=== PATIENT | female | born 1995 | race African-American/Black ===

== ENCOUNTER 2016-10-08 12:16 | Emergency (ER) | payer OTHER ==
[2016-10-08 12:28] VITALS: TEMP 98; BMI 25.8
[2016-10-08] MEDS ORDERED: ACETAMINOPHEN 500 MG TABLET (FP) PO ONE (13:18)
[2016-10-08] MEDS ORDERED: ACETAMINOPHEN 325 MG TABLET (FP) ONE (13:20)
[2016-10-08 13:32] LABS: URINE APPEARANCE CLEAR; URINE BILIRUBIN NEGATIVE (NEGATIVE); URINE BLOOD NEGATIVE (NEGATIVE); URINE COLOR LTYELLOW; URINE GLUCOSE (UA) NEGATIVE (NEGATIVE); URINE KETONE NEGATIVE (NEGATIVE); URINE LEUK ESTERASE NEGATIVE (NEGATIVE); URINE NITRITE NEGATIVE (NEGATIVE); URINE PROTEIN NEGATIVE (NEGATIVE); URINE UROBILINOGEN NEGATIVE E.U./dl (0.2-1.0)
--- NOTE | 2016-10-08 13:43 | PDOC ---
*Physical Exam - Vital Signs Last Vital Signs Temp Pulse Resp BP Pulse Ox 98.0 F 54 L 18 110/73 100 10/08/16 12:25 10/08/16 12:25 10/08/16 12:25 10/08/16 12:25 10/08/16 12:25 - Physical Exam Comments: 10/08/16 13:42 MIDLEVEL NOTE Pt seen by Midlevel Provider under my direct supervision. Pt interviewed and examined. Ancillary studies reviewed. I agree with plan as outlined by Midlevel Provider. 10/08/16 15:56 Laboratory Results - last 24 hr 10/08/16 13:18 Urine Color Ltyellow Urine Appearance Clear Urine pH 6.0 Ur Specific [place] 1.015 Urine Protein Negative Urine Glucose (UA) Negative Urine Ketones Negative Urine Blood Negative Urine Nitrite Negative Urine Bilirubin Negative Urine Urobilinogen Negative Ur Leukocyte Esterase Negative Pelvic ultrasound The ovaries are normal in size and texture with good arterial flow to both ovaries No evidence of torsion There are small follicular cysts bilaterally Possible appearance of polycystic ovary syndrome Thickened endometrium Pelvic free fluid in the cul-de-sac Urine test negative ED Treatment Course - Medications Given in the ED: ED Medications Discontinued Medications Generic Name Dose Route Start Last Admin Trade Name Freq PRN Reason Stop Dose Admin Acetaminophen 975 mg 10/08/16 13:18 10/08/16 13:42 Tylenol - PO 10/08/16 13:19 975 mg ONCE ONE Administration *DC/Admit/Observation/Transfer Diagnosis at time of Disposition: Suprapubic pain - Discharge Dispostion Disposition: HOME Condition at time of disposition: Good - Patient Instructions Printed Discharge Instructions: Polycystic Ovary Syndrome Additional Instructions: Ultrasound showed no acute findings of torsion. Patient does show PCO S which she has a diagnosis of. I do recommend you follow up if your PRINTING TECHNICIAN as needed. otherwise take Tylenol and apply warm compresses the affected area.
--- NOTE | 2016-10-08 14:23 | PDOC ---
History of Present Illness - General Chief Complaint: Pain, Acute Stated Complaint: ABD PAIN (CYST) Time Seen by Provider: 10/08/16 13:03 History Source: Patient Exam Limitations: No Limitations - History of Present Illness Travel History: No Initial Comments: 10/08/16 14:18 21-year-old female presents to the emergency room complaints of left suprapubic pain that she states started a few days ago had went to another clinic and Lashay Heard a told that she had an ovarian cyst that was possibly twisting around her ovary. Patient states has had a cyst to the left side before with removal numerous years ago. Patient states irregular menses and is currently using no control. Patient denies history of ectopic, nausea, vomiting, fever, chills, vaginal discharge but does state with spotting yesterday. Timing/Duration: reports: constant Quality: reports: mild, moderate, cramping Abdominal Pain Onset Location: reports: suprapubic Pain Radiation: reports: no radiation Activities at Onset: reports: none Aggravating Factors: improves with: Movement. worse with: [place] Alleviating Factors: improves with: Rest Past History - Past Medical History Allergies/Adverse Reactions: Allergies Allergy/AdvReac Type Severity Reaction Status Date / Time No Known Allergies Allergy Verified 10/08/16 12:28 Home Medications: Ambulatory Orders NK [No Known Home Medication] 08/23/15 Asthma: Yes - Surgical History Abdominal Surgery: Yes (OVARIAN CYCT REMOVED) - Psycho/Social/Smoking Cessation Hx Suicidal Ideation: No Smoking History: Never smoked Information on smoking cessation initiated: No Hx Alcohol Use: Yes Drug/Substance Use Hx: Yes Substance Use Type: None Patient Lives Alone: No Lives with/in: parents Review of Systems - Review of Systems Able to Perform ROS?: Yes Constitutional: No: Symptoms Reported HEENTM: No: Symptoms Reported Respiratory: No: Symptoms reported Cardiac (ROS): No: Symptoms Reported ABD/GI: Yes: Abdominal cramping : No: Symptoms Reported Musculoskeletal: No: Symptoms Reported Integumentary: No: Symptoms Reported Neurological: No: Symptoms reported Endocrine: No: Symptoms Reported Hematologic/Lymphatic: No: Symptoms Reported *Physical Exam - Vital Signs Last Vital Signs Temp Pulse Resp BP Pulse Ox 98.0 F 54 L 18 110/73 100 10/08/16 12:25 10/08/16 12:25 10/08/16 12:25 10/08/16 12:25 10/08/16 12:25 - Physical Exam General Appearance: Yes: Nourished, Appropriately Dressed. No: Apparent Distress HEENT: negative: Pale Conjunctivae Cardiovascular: positive: Regular Rhythm, Regular Rate. negative: Murmur Female Pelvic Exam: positive: normal external exam, cervical os closed. negative: CMT, adnexal tenderness, vaginal bleeding Gastrointestinal/Abdominal: positive: Soft, Tenderness (left suprapubic and mid suprapubic) Musculoskeletal: negative: CVA Tenderness Extremity: positive: Normal Capillary Refill. negative: Pedal Edema Integumentary: positive: Normal Color, Warm, Moist Neurologic: positive: Motor Strength 5/5 (ambulatory) ED Treatment Course - ADDITIONAL ORDERS Additional order review: Laboratory Results 10/08/16 13:18 Urine Color Ltyellow Urine Appearance Clear Urine pH 6.0 Urine Protein Negative Urine Glucose (UA) Negative Urine Ketones Negative Urine Blood Negative Urine Nitrite Negative Urine Bilirubin Negative Urine Urobilinogen Negative Ur Leukocyte Esterase Negative - RADIOLOGY Radiology Studies Ordered: Category Date Time Status PELVIC / BLADDER US [US] Stat Ultrasound 10/08/16 13:04 Ordered TRANSVAGINAL ULTRASOUND US [US] Stat Ultrasound 10/08/16 13:04 Ordered - Medications Given in the ED: ED Medications Discontinued Medications Generic Name Dose Route Start Last Admin Trade Name [place] PRN Reason Stop Dose Admin Acetaminophen 975 mg 10/08/16 13:18 10/08/16 13:42 Tylenol - PO 10/08/16 13:19 975 mg ONCE ONE Administration Medical Decision Making - Medical Decision Making 10/08/16 14:05 Patient with complaints of continual lower extremity. No pain and states had an ultrasound done yesterday at a nearby clinic that said twisting of her ovarian cyst and was to follow up with her STORE DIRECTOR and consider options since she has history of ovarian cyst with removal in the past. Patient on exam had no vaginal discharge, vaginal bleeding or adnexal tenderness. Patient ordered for Tylenol, urine and urine and ultrasound transvaginally. 10/08/16 14:27 Laboratory Tests 10/08/16 13:18 Urine Color Ltyellow Urine Glucose (UA) Negative Urine Ketones Negative Urine Nitrite Negative Ur Leukocyte Esterase Negative Urine HCG, Qual Pending 10/08/16 14:55 Ultrasound shows thickened endometrium measuring 12 mm thickness. The ovaries are normal size infection with normal arterial flow in both ovaries. There is no evidence of torsion. There are small follicular cysts noted bilaterally that may have the appearance of polycystic ovary syndrome. There is no adnexal masses. Free fluid is identified within the cul-de-sac. Patient will follow-up with her PCP. *DC/Admit/Observation/Transfer Diagnosis at time of Disposition: Suprapubic pain - Discharge Dispostion Disposition: HOME Condition at time of disposition: Good - Patient Instructions Printed Discharge Instructions: Polycystic Ovary Syndrome Additional Instructions: Ultrasound showed no acute findings of torsion. Patient does show PCO S which she has a diagnosis of. I do recommend you follow up if your DAYCARE ASSISTANT as needed. otherwise take Tylenol and apply warm compresses the affected area.
[2016-10-08 15:14] VITALS: BP 112/70; PULSE 80
== END 2016-10-08 15:14 | disposition home or self-care (01) ==
LOC: JER 12:16
DX: E28.2 Polycystic ovarian syndrome (principal)
CPT/HCPCS: 76830-TC; 76856-TC; 81003; 84703; 99283-25

== ENCOUNTER 2016-11-01 11:07 | Emergency (ER) | payer SELFPAY ==
[2016-11-01 11:21] VITALS: TEMP 98.6; BMI 29.0
[2016-11-01 11:56] LABS: EOSINOPHIL 4.1 % (0-4.5); MCH 32.4 pg (25.7-33.7); MCHC 34.1 g/dl (32.0-36.0); MEAN CELL VOLUME 94.9 fl (80-96); MEAN PLT VOLUME 9.1 fl (7.5-11.1); PLATELET COUNT 301 K/MM3 (134-434); RDW 13.5 % (11.6-15.6); WHITE BLOOD COUNT 5.9 K/mm3 (4.0-10.0)
[2016-11-01 12:18] LABS: CALCIUM 9.2 mg/dL (8.5-10.1); COCKROFT - GAULT 143.378; CREATININE 0.8 mg/dL (0.55-1.02)
[2016-11-01] MEDS ORDERED: KETOROLAC TROMETHAMINE 30 MG/1 ML VIAL IM ONE (12:19)
[2016-11-01 12:22] LABS: URINE APPEARANCE CLEAR; URINE BILIRUBIN NEGATIVE (NEGATIVE); URINE BLOOD NEGATIVE (NEGATIVE); URINE COLOR DKYELLOW; URINE GLUCOSE (UA) NEGATIVE (NEGATIVE); URINE KETONE NEGATIVE (NEGATIVE); URINE LEUK ESTERASE NEGATIVE (NEGATIVE); URINE NITRITE NEGATIVE (NEGATIVE); URINE UROBILINOGEN NEGATIVE E.U./dl (0.2-1.0)
[2016-11-01 12:26] LABS: URINE PROTEIN 1+ (NEGATIVE)
--- NOTE | 2016-11-01 12:32 | PDOC ---
History of Present Illness - General Chief Complaint: Vaginal Bleeding Stated Complaint: POSSIBLE MISCARRIAGE (THROAT PAIN) Time Seen by Provider: 11/01/16 11:28 History Source: Patient Exam Limitations: No Limitations - History of Present Illness Initial Comments: 11/01/16 12:32 CHIEF COMPLAINT: Vaginal bleeding HISTORY OF PRESENT ILLNESS: This is a 21 year old female with a history of pre- DM (previously on Metformin, but discontinued last year) and ovarian cyst s/p cystectomy who presents complaining of three weeks of vaginal bleeding. Her menstrual period on her normal schedule on 10/17, but she has had intermittent bleeding with some clots since then. She just started taking OCP. She reports lower abdominal pain/cramping. She also complains of throat pain and chills. Vital signs on arrival are notable for P 98. Patient does not have a PCP, but does see a Dr. Alvarez for cod clerk. REVIEW OF SYSTEMS: GENERAL/CONSTITUTIONAL: No fever or chills. No weakness. No weight change. HEAD, EYES, EARS, NOSE AND THROAT: Throat pain/painful swallowing. No change in vision. No ear pain or discharge. RESPIRATORY: No cough, wheezing, or shortness of breath. GASTROINTESTINAL: No nausea, vomiting, diarrhea or constipation. GENITOURINARY: See HPI. MUSCULOSKELETAL: No joint or muscle swelling or pain. No neck or back pain. SKIN: No rash or easy bruising. NEUROLOGIC: No headache, vertigo, loss of consciousness, or loss of sensation. PSYCHIATRIC: No depression or anxiety. ENDOCRINE: No increased thirst. No abnormal weight change. HEMATOLOGIC/LYMPHATIC: No anemia, easy bleeding, or history of blood clots. ALLERGIC/IMMUNOLOGIC: No hives or skin allergy. No latex allergy. PHYSICAL EXAM: GENERAL: The patient is awake, alert, and fully oriented, in no acute distress. ENT: Pupils equal, round and reactive to light, extraocular movements intact, sclera anicteric, conjunctiva clear. Neck supple. LUNGS: Clear to auscultation bilaterally. Normal excursion. No respiratory distress or use of accessory muscles. CV: RRR, S1/S2, no MRG. Cap refill < 2 sec. ABDOMEN: Soft, non-distended, non-tender. EXTREMITIES: Normal range of motion, no edema. NEUROLOGICAL: Normal speech, normal gait. CN II-XII grossly intact. PSYCH: Normal mood, normal affect. SKIN: Warm, dry, normal turgor, no rashes or lesions noted. LEAD NUCLEAR MEDICINE TECHNOLOGIST: Normal external exam. No vaginal bleeding or abnormal vaginal discharge. Right adnexal tenderness. Past History - Past Medical History Allergies/Adverse Reactions: Allergies Allergy/AdvReac Type Severity Reaction Status Date / Time No Known Allergies Allergy Verified 11/01/16 11:22 Home Medications: Ambulatory Orders Ibuprofen 600 mg PO Q6H PRN #30 tablet 11/01/16 Asthma: Yes - Surgical History Abdominal Surgery: Yes (OVARIAN CYCT REMOVED) - Reproductive History Is Patient Now?: (?) (#): 1 Para: 0 Polycystic Ovaries: Yes Therapeutic (s) & number: No Spontaneous : 1 - Psycho/Social/Smoking Cessation Hx Anxiety: No Suicidal Ideation: No Smoking History: Never smoked Hx Alcohol Use: Yes (SOCIAL) Drug/Substance Use Hx: No Substance Use Type: None *Physical Exam - Vital Signs Last Vital Signs Temp Pulse Resp BP Pulse Ox 98.6 F 98 H 20 121/72 100 11/01/16 11:18 11/01/16 11:18 11/01/16 11:18 11/01/16 11:18 11/01/16 11:18 ED Treatment Course - LABORATORY CBC & Chemistry Diagram: 11/01/16 11:50 11/01/16 11:50 - ADDITIONAL ORDERS Additional order review: Laboratory Results 11/01/16 11/01/16 11:50 11:50 Sodium 141 Potassium 3.8 Chloride 103 Carbon Dioxide 27 Anion Gap 11 BUN 6 L Creatinine 0.8 Random Glucose 98 Calcium 9.2 Urine Color Dkyellow Urine Appearance Clear Urine pH 5.0 Urine Protein 1+ H Urine Glucose (UA) Negative Urine Ketones Negative Urine Blood Negative Urine Nitrite Negative Urine Bilirubin Negative Urine Urobilinogen Negative Ur Leukocyte Esterase Negative 11/01/16 11:50 RBC 3.88 MCV 94.9 MCHC 34.1 RDW 13.5 MPV 9.1 Neutrophils % 61.0 D Lymphocytes % 26.7 D Monocytes % 7.2 Eosinophils % 4.1 Basophils % 1.0 - RADIOLOGY Radiology Studies Ordered: Category Date Time Status TRANSVAGINAL ULTRASOUND US [US] Stat Ultrasound 11/01/16 12:19 Ordered Medical Decision Making - Medical Decision Making 11/01/16 13:49 A/P: 21 year old female with dysfunctional uterine bleeding and pelvic cramping. 1. UA/culture 2. Labs including CBC, BMP, serum hcg, GC/CT 3. Transvaginal u/s to r/o cyst, torsion 4. Toradol 30mg IM for pain 5. Rapid strep and throat culture (also complaining of throat pain and chills) 11/01/16 13:54 Ultrasound shows no acute pathology. There are small bilateral cysts, which may be consistent with PCOS. Serum hcg is negative. H/H is within normal limits. Repeat HR is 86. Will dc with ibuprofen for pain and cod clerk followup. *DC/Admit/Observation/Transfer Diagnosis at time of Disposition: Vaginal bleeding, Throat pain - Discharge Dispostion Disposition: HOME Condition at time of disposition: Stable Admit: No - Prescriptions Prescriptions: Ibuprofen 600 mg PO Q6H PRN #30 tablet PRN Reason: Pain - Patient Instructions Printed Discharge Instructions: DI for Vaginal Bleeding, Polycystic Ovary Syndrome Additional Instructions: You were seen today for abnormal vaginal bleeding and throat pain. -Your strep test is negative -All of your labs including complete blood count are normal (no anemia) -Your ultrasound shows small ovarian cysts on both sides, which could indicate polycystic ovary syndrome (PCOS). This should be looked at further by your ob/ locum tenens psychiatrist. If you are not able to see your cod clerk, please call our clinic at [address] [place] [address] for an appointment ([phone]). -Take ibuprofen 600mg every 6hrs with food as prescribed if needed for pain/ cramping. -Return here for heavy bleeding (more than one pad per hour), lightheadedness, or any other concerning symptoms.
[2016-11-01 12:34] LABS: GRANULAR CASTS 2 /lpf; URINE HYALINE CAST 4 /lpf; URINE MUCUS MANY; URINE RBC 1 /hpf (0-3); URINE WBC 1 /hpf (3-5)
[2016-11-01] MEDS ORDERED: KETOROLAC TROMETHAMINE 30 MG/1 ML VIAL ONE (12:52)
[2016-11-01 14:14] VITALS: BP 117/68; PULSE 86
== END 2016-11-01 14:06 | disposition home or self-care (01) ==
LOC: JER 11:07
PROC: 3E0233Z Introduction of Anti-inflammatory into Muscle, Percutaneous Approach (ICD-10-PCS; principal; 2016-11-01)
DX: N93.8 Other specified abnormal uterine and vaginal bleeding (principal); N83.292 Other ovarian cyst, left side; N83.291 Other ovarian cyst, right side
CPT/HCPCS: 36415; 76830-TC; 80048; 81003; 81015; 84703; 85025; 86850; 86900; 86901; 87070; 87086; 87430; 87491; 87591; 99284-25

== ENCOUNTER 2017-08-04 07:07 | Emergency (ER) | payer SELFPAY ==
[2017-08-04 07:16] VITALS: TEMP 98.5; BMI 25.8
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
[2017-08-04 09:12] LABS: HCG,QUALITATIVE URINE NEGATIVE; URINE APPEARANCE CLOUDY; URINE BILIRUBIN NEGATIVE (NEGATIVE); URINE BLOOD NEGATIVE (NEGATIVE); URINE COLOR YELLOW; URINE GLUCOSE (UA) NEGATIVE (NEGATIVE); URINE KETONE TRACE (NEGATIVE); URINE LEUK ESTERASE TRACE (NEGATIVE); URINE NITRITE NEGATIVE (NEGATIVE)
[2017-08-04 09:14] LABS: URINE PROTEIN 1+ (NEGATIVE)
[2017-08-04 09:18] LABS: EPI CELLS MANY /HPF (FEW); URINE HYALINE CAST 6 /lpf; URINE MUCUS MANY
[2017-08-04] MEDS ORDERED: ALBUTEROL SO4 2.5/IPRATROPIUM 0.5 INH SOL 3 ML VIAL.NEB. NEB ONE ×2 (10:45→11:37)
[2017-08-04] MEDS ORDERED: NAPROXEN 500 MG TABLET (FP) PO ONE (10:58)
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
[2017-08-04] MEDS ORDERED: NAPROXEN 500 MG TABLET (FP) ONE (11:37)
[2017-08-04 14:10] VITALS: BP 119/78; PULSE 66
== END 2017-08-04 13:00 | disposition home or self-care (01) ==
LOC: JER 07:07
PROC: 2W3CX1Z Immobilization of Right Lower Arm using Splint (ICD-10-PCS; principal; 2017-08-04)
PROC: 3E0F7GC Introduction of Other Therapeutic Substance into Respiratory Tract, Via Natural or Artificial Opening (ICD-10-PCS; 2017-08-04)
DX: S62.356A Nondisplaced fracture of shaft of fifth metacarpal bone, right hand, initial encounter for closed fracture (principal); F31.9 Bipolar disorder, unspecified; J45.909 Unspecified asthma, uncomplicated; Y04.2XXA Assault by strike against or bumped into by another person, initial encounter; Y93.89 Activity, other specified; Y92.9 Unspecified place or not applicable
CPT/HCPCS: 70450-TC; 72050-TC-FY; 73000-TC-LT-FY; 73030-TC-LT-FY; 73130-TC-RT-FY; 81003; 81015; 84703; 99281-25

== ENCOUNTER 2018-12-03 21:25 | Emergency (ER) | payer OTHER ==
[2018-12-03 21:29] VITALS: BP 121/79; PULSE 116; TEMP 98.6; BMI 29.0
[2018-12-03] MEDS ORDERED: DIPHTH,PERTUSS(ACELL),TET 0.5 ML DISP.SYRIN IM ONE ×2 (21:56→21:59)
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
== END 2018-12-03 22:57 | disposition home or self-care (01) ==
LOC: JERFT 21:25
PROC: 3E0234Z Introduction of Serum, Toxoid and Vaccine into Muscle, Percutaneous Approach (ICD-10-PCS; principal; 2018-12-03)
DX: S09.90XA Unspecified injury of head, initial encounter (principal); S00.31XA Abrasion of nose, initial encounter; Y04.2XXA Assault by strike against or bumped into by another person, initial encounter; Y93.89 Activity, other specified; Y92.9 Unspecified place or not applicable; O26.891 Other specified pregnancy related conditions, first trimester; Z3A.00 Weeks of gestation of pregnancy not specified
CPT/HCPCS: 90715; 99281-25

== ENCOUNTER 2018-12-08 14:13 | Emergency (ER) | payer OTHER ==
--- NOTE | 2018-12-08 14:22 | PDOC ---
Rapid Medical Evaluation Time Seen by Provider: 12/08/18 14:20 Medical Evaluation: Allergies Allergy/AdvReac Type Severity Reaction Status Date / Time No Known Allergies Allergy Verified 12/03/18 21:33 12/08/18 14:20 I have performed a brief in-person evaluation of this patient. The patient presents with a chief complaint of: vaginal spotting with abdominal cramping. LMP-5/13. Using tampons. Pertinent physical exam findings: deferred I have ordered the following: labs, urine, TVUS The patient will proceed to the ED for further evaluation. Discharge Disposition - Diagnosis Vaginal bleeding - Referrals - Patient Instructions - Post Discharge Activity
[2018-12-08 14:24] VITALS: TEMP 98.7; BMI 29.0
[2018-12-08 15:17] LABS: BASO % 1.2 % (0-2.0); EOS % 4.4 % (0-4.5); HEMATOCRIT 40.4 % (32.4-45.2); HEMOGLOBIN 13.7 GM/dL (10.7-15.3); LYMPH % 36.2 % (8-40); MCHC 33.9 g/dl (32.0-36.0); MEAN CELL VOLUME 97.1 fl (80-96); MEAN PLT VOLUME 9.1 fl (7.5-11.1); NEUT % 49.2 % (42.8-82.8); PLATELET COUNT 325 K/MM3 (134-434); RBC 4.16 M/mm3 (3.60-5.2); RDW 13.7 % (11.6-15.6); WHITE BLOOD COUNT 5.3 K/mm3 (4.0-10.0)
[2018-12-08 15:20] LABS: HYALINE CASTS 18 /lpf (0-8); PH,URINE 5.5 (5.0-8.0); URINE APPEARANCE CLOUDY; URINE BACTERIA 7886.1 /hpf (NEGATIVE); URINE BILIRUBIN NEGATIVE (NEGATIVE); URINE COLOR YELLOW; URINE GLUCOSE (UA) NEGATIVE (NEGATIVE); URINE KETONE TRACE (NEGATIVE); URINE LEUK ESTERASE 1+ (NEGATIVE); URINE NITRITE POSITIVE (NEGATIVE); URINE PROTEIN NEGATIVE (NEGATIVE); URINE RBC 3 /hpf (0-4); URINE WBC 13 /hpf (0-5)
[2018-12-08 15:21] LABS: HCG,QUALITATIVE URINE Negative
--- NOTE | 2018-12-08 15:21 | PDOC ---
History of Present Illness - General Chief Complaint: Vaginal Bleeding Stated Complaint: 8WKS/BLEEDING Time Seen by Provider: 12/08/18 14:20 History Source: Patient Exam Limitations: No Limitations - History of Present Illness Travel History: No Initial Comments: 12/08/18 15:00 23-year-old female approximately 8-9 weeks presents to ED with complaints of lower abdominal cramping that began last evening accompanied with light pink blood now light red without passage of clots since this morning. Since did a home test 2 weeks ago and has her first [employer] appointment next month Patient states has not had an ultrasound for this and denies any fever, chills, nausea, urinary complaints bowel complaints, or recent injury. Timing/Duration: reports: constant Quality: reports: mild, cramping Abdominal Pain Onset Location: reports: suprapubic Pain Radiation: reports: no radiation Activities at Onset: reports: none Aggravating Factors: improves with: None Alleviating Factors: improves with: None Past History - Travel Traveled outside of the country in the last 30 days: No Close contact w/someone who was outside of country & ill: No - Past Medical History Allergies/Adverse Reactions: Allergies Allergy/AdvReac Type Severity Reaction Status Date / Time No Known Allergies Allergy Verified 12/08/18 14:24 Home Medications: Ambulatory Orders Cephalexin [Keflex] 500 mg PO BID #14 capsule 12/08/18 Asthma: Yes COPD: No - Surgical History Abdominal Surgery: Yes (OVARIAN CYST REMOVED) - Reproductive History (#): 3 Para: 0 Polycystic Ovaries: Yes Therapeutic (s) & number: Yes (1) Spontaneous : 1 - Suicide/Smoking/Psychosocial Hx Smoking History: Current every day smoker Have you smoked in the past 12 months: Yes Number of Cigarettes Smoked Daily: 20 Information on smoking cessation initiated: No Hx Alcohol Use: No Drug/Substance Use Hx: No Substance Use Type: None Patient Lives Alone: No Lives with/in: parents Review of Systems - Review of Systems Able to Perform ROS?: Yes Constitutional: No: Symptoms Reported ABD/GI: Yes: Abdominal cramping : Yes: Discharge Musculoskeletal: No: Symptoms Reported Integumentary: No: Symptoms Reported Neurological: No: Symptoms reported Hematologic/Lymphatic: No: Symptoms Reported *Physical Exam - Vital Signs Last Vital Signs Temp Pulse Resp BP Pulse Ox 98.7 F 94 H 18 103/73 100 12/08/18 14:21 12/08/18 14:21 12/08/18 14:21 12/08/18 14:21 12/08/18 14:21 - Physical Exam General Appearance: Yes: Nourished, Appropriately Dressed. No: Apparent Distress HEENT: negative: Pale Conjunctivae Neck: positive: Normal Thyroid Respiratory/Chest: positive: Lungs Clear, Normal Breath Sounds. negative: Respiratory Distress, Accessory Muscle Use Cardiovascular: positive: Regular Rhythm, Regular Rate. negative: Murmur Female Pelvic Exam: positive: vaginal bleeding (light red/pink, no clots). negative: adnexal tenderness Gastrointestinal/Abdominal: positive: Soft, Tenderness (mild midsuprapubic) Musculoskeletal: negative: CVA Tenderness Integumentary: positive: Normal Color, Warm, Moist Neurologic: positive: Motor Strength 5/5 (ambulatory) ED Treatment Course - LABORATORY CBC & Chemistry Diagram: 12/08/18 13:00 12/08/18 13:00 Medical Decision Making - Medical Decision Making 12/08/18 15:05 CC:Lower abdominal cramping since last evening accompanied with spotting this morning without passage of clots. Patient is approximately 8-9 weeks based on LMP Exam: mild mid suprapubic tenderness with scant light pink to light red blood Plan: Labs, urine and ultrasound ordered 12/08/18 15:50 Laboratory Tests 12/08/18 12/08/18 12/08/18 13:00 13:00 13:00 WBC 5.3 Hgb 13.7 Hct 40.4 Sodium Potassium Chloride Carbon Dioxide BUN Est GFR (CKD-EPI)AfAm Random Glucose Calcium Total Bilirubin AST ALT Beta HCG, Quant < 1.0 Urine Ketones Trace H Urine Blood 2+ H Urine Nitrite Positive H Urine Bilirubin Negative Ur Leukocyte Esterase 1+ H Urine WBC (Auto) 13 Urine HCG, Qual Negative 12/08/18 13:00 WBC Hgb Hct Sodium 138 Potassium 4.0 Chloride 107 Carbon Dioxide 24 BUN 6.9 L Est GFR (CKD-EPI)AfAm 141.54 Random Glucose 85 Calcium 9.0 Total Bilirubin 1.1 H AST 19 ALT 16 Beta HCG, Quant Urine Ketones Urine Blood Urine Nitrite Urine Bilirubin Ur Leukocyte Esterase Urine WBC (Auto) Urine HCG, Qual Beta and urine negative for . Patient will be prescribed Keflex for positive UTI. Ultrasound report pending 12/08/18 15:51 12/08/18 15:54 This of endometrial stripe without evidence of intra-urine . Complex cyst/hemorrhagic corpus in the left ovary measuring 1.6 cm. Right ovary was not visualized. No gross adnexal mass identified. Patient states has history of left ovarian cyst. *DC/Admit/Observation/Transfer Diagnosis at time of Disposition: Vaginal bleeding, UTI (urinary tract infection) - Discharge Dispostion Disposition: HOME Condition at time of disposition: Good - Prescriptions Prescriptions: Cephalexin [Keflex] 500 mg PO BID #14 capsule - Referrals - Patient Instructions Printed Discharge Instructions: DI for Urinary Tract Infection (UTI) Additional Instructions: Take Antibiotics as prescribed. Please drink plenty of fluids. Please clean from front to back. May take Motrin or Tylenol for any discomfort. - Post Discharge Activity
[2018-12-08 15:30] LABS: INR 1.13 (0.83-1.09); PROTHROMBIN TIME (PATIENT) 13.4 SEC (9.7-13.0)
[2018-12-08 15:44] LABS: BILIRUBIN,TOTAL 1.1 mg/dL (0.2-1); BLOOD UREA NITROGEN 6.9 mg/dL (7-18); CREATININE 0.7 mg/dL (0.55-1.3); TOT PROT 8.8 g/dl (6.4-8.2)
[2018-12-08 16:10] VITALS: BP 110/74; PULSE 75
== END 2018-12-08 16:10 | disposition home or self-care (01) ==
LOC: JER 14:13
DX: N39.0 Urinary tract infection, site not specified (principal); N83.202 Unspecified ovarian cyst, left side
CPT/HCPCS: 36415; 76817-TC; 80053; 81003; 84702; 84703; 85025; 85610; 87086; 87186; 99283-25

== ENCOUNTER 2019-03-04 18:12 | Emergency (ER) | payer OTHER ==
[2019-03-04 18:26] VITALS: TEMP 98; BMI 29.0
[2019-03-04] MEDS ORDERED: predniSONE 20 MG TABLET (UD) PO ONE (18:52)
--- NOTE | 2019-03-04 18:52 | PDOC ---
History of Present Illness - General History Source: Patient Exam Limitations: No Limitations - History of Present Illness Initial Comments: 03/04/19 18:47 HISTORY OF PRESENT ILLNESS: 23yoF with PMHx asthma(no ETT, no ICU, 2-3 annual visits), PCOS, pre-diabetes who presents to the ED for productive cough x1 month and wheezing x1 week. She denies f/c. No recent travel or sick contacts. PAST MEDICAL HISTORY: Denies past medical history SURGICAL HISTORY: Denies ALLERGIES: No known drug allergies REVIEW OF SYSTEMS General/Constitutional: Denies fever or chills. Denies weakness, weight change. HEENT: Denies change in vision. Denies ear pain or discharge. Denies sore throat. Cardiovascular: Denies chest pain or shortness of breath. Respiratory: see HPI Gastrointestinal: Denies nausea, vomiting, diarrhea or constipation. Denies rectal bleeding. Genitourinary: Denies dysuria, frequency, or change in urination. Musculoskeletal: Denies joint or muscle swelling or pain. Denies neck or back pain. Skin and breasts: Denies rash or easy bruising. Neurologic: Denies headache, vertigo, loss of consciousness, or loss of sensation. Psychiatric: Denies depression or anxiety. Endocrine: Denies increased thirst. Denies abnormal weight change. Hematologic/Lymphatic: Denies anemia, easy bleeding, or history of blood clots. Allergic/Immunologic: Denies hives or skin allergy. Denies latex allergy. PHYSICAL EXAM General Appearance: Well-appearing, appropriately dressed. No apparent distress , no intoxication. HEENT: EOMI, PERRLA, normal ENT inspection, normal voice, TMs normal, pharynx normal. No conjunctival pallor. No photophobia, scleral icterus. Neck: Supple. Trachea midline. No tenderness, rigidity, carotid bruit, stridor , lymphadenopathy, or thyromegaly. Respiratory/Chest: Speaking full sentences. No shortness of breath, chest tenderness, respiratory distress, accessory muscle use. Scattered I&E wheezes present. Cardiovascular: RRR. S1, S2. No JVD, murmur, bradycardia, tachycardia. Vascular Pulses: Dorsalis-Pedis (R): 2+, Dorsalis-Pedis (L): 2+ Gastrointestinal/Abdominal: Normal bowel sounds. Abdomen soft, non-distended. No tenderness or rebound tenderness. No organomegaly, pulsatile mass, guarding, hernia, hepatomegaly, splenomegaly. Lymphatic: No adenopathy, tenderness. Musculoskeletal/Extremities: Normal inspection. FROM of all extremities, normal capillary refill. Pelvis Stable. No CVA tenderness. No tenderness to extremities, pedal edema, swelling, erythema or deformity. Integumentary: Appropriate color, dry, warm. No cyanosis, erythema, jaundice or rash Neurologic: plate grinder II-XII intact. Fully oriented, alert. Appropriate mood/affect. Motor strength 5/5. No appreciable EOM palsy, facial droop or sensory deficit. <Wesley Dale - Last Filed: 03/04/19 21:10> <Dulce Bennett - Last Filed: 03/04/19 21:25> - General Chief Complaint: Asthma Stated Complaint: ASTHMA Time Seen by Provider: 03/04/19 18:30 Past History - Past Medical History Asthma: Yes COPD: No - Surgical History Abdominal Surgery: Yes (OVARIAN CYST REMOVED) - Reproductive History (#): 3 Para: 0 Polycystic Ovaries: Yes Therapeutic (s) & number: Yes (1) Spontaneous : 1 - Psycho Social/Smoking Cessation Hx Smoking History: Current some day smoker Have you smoked in the past 12 months: Yes Number of Cigarettes Smoked Daily: 20 Information on smoking cessation initiated: Yes Hx Alcohol Use: No Drug/Substance Use Hx: No Substance Use Type: None <Wesley Dale - Last Filed: 03/04/19 21:10> <Dulce Bennett - Last Filed: 03/04/19 21:25> - Past Medical History Allergies/Adverse Reactions: Allergies Allergy/AdvReac Type Severity Reaction Status Date / Time No Known Allergies Allergy Verified 03/04/19 18:21 Home Medications: Ambulatory Orders Cephalexin [Keflex] 500 mg PO BID #14 capsule 12/08/18 Azithromycin [Zithromax 250mg Tablets -] 250 mg PO UTDICT #6 tab 03/04/19 *Physical Exam - Vital Signs Last Vital Signs Temp Pulse Resp BP Pulse Ox 98 F 93 H 16 122/66 99 03/04/19 18:21 03/04/19 18:21 03/04/19 18:21 03/04/19 18:21 03/04/19 18:21 <Wesley Dale - Last Filed: 03/04/19 21:10> - Vital Signs Last Vital Signs Temp Pulse Resp BP Pulse Ox 98 F 93 H 16 122/66 99 03/04/19 18:21 03/04/19 18:21 03/04/19 18:21 03/04/19 18:21 03/04/19 18:21 <Dulce Bennett - Last Filed: 03/04/19 21:25> ED Treatment Course - Medications Given in the ED: ED Medications Discontinued Medications Generic Name Dose Route Start Last Admin Trade Name Landen PRN Reason Stop Dose Admin Albuterol/Ipratropium 1 amp 03/04/19 19:00 03/04/19 19:47 Duoneb - NEB 03/04/19 19:46 1 amp Q15M VERONICA Administration Prednisone 60 mg 03/04/19 18:52 03/04/19 19:46 Deltasone - PO 03/04/19 18:53 60 mg ONCE ONE Administration <Dulce Bennett - Last Filed: 03/04/19 21:25> Medical Decision Making - Medical Decision Making 03/04/19 18:50 A/P: 23yoF with cough and wheezing Nebs, prednisone upt reassess 03/04/19 20:48 Repeat lung exam reveals clear lungs. Pt continues to have a moist cough. I will d/c with Rx for azithromycin given length of symptoms, smoking history and asthma. <Wesley Dale - Last Filed: 03/04/19 21:10> - Medical Decision Making 03/04/19 21:25 The patient was seen and evaluated in conjunction with midlevel provider under my direct supervision, ancillary studies were reviewed. I agree with the plan as outlined [employer] [place]. HPI, workup/dispo as outlined. VS reviewed, wnl. anticipate discharge, pcp followup, return precautions <Dulce Bennett - Last Filed: 03/04/19 21:25> Discharge - Discharge Information Problems reviewed: Yes - Admission No <Wesley Dale - Last Filed: 03/04/19 21:10> <Dulce Bennett - Last Filed: 03/04/19 21:25> - Discharge Information Clinical Impression/Diagnosis: Bronchitis Condition: Stable Disposition: HOME - Additional Discharge Information Prescriptions: Azithromycin [Zithromax 250mg Tablets -] 250 mg PO UTDICT #6 tab - Follow up/Referral Referrals: [facility] [place] [facility] [Provider Group] - Patient Discharge Instructions Patient Printed Discharge Instructions: DI for Chronic Bronchitis Additional Instructions: Rest, drink lots of fluids: Teas, water, soups, Pedialyte Saltwater gargles Steamy showers/seem to face break up mucus Avoid contact with others until fevers and cough resolved Lots of handwashing and good hygiene Continue [id number] medications for symptomatic relief Tylenol or Motrin for fever and pain Followup with private physician in one to 2 days as needed Return to emergency department for worsened symptoms, fevers, dehydration
[2019-03-04] MEDS ORDERED: ALBUTEROL SO4 2.5/IPRATROPIUM 0.5 INH SOL 3 ML VIAL.NEB. NEB ONE ×2 (19:24→20:34)
[2019-03-04] MEDS ORDERED: predniSONE 20 MG TABLET (UD) ONE (19:24)
[2019-03-04] MEDS: ALBUTEROL SO4 2.5/IPRATROPIUM 0.5 INH SOL 3 ML VIAL.NEB. NEB SCH ×3 (19:30→19:47)
[2019-03-04 21:40] VITALS: BP 131/71; PULSE 96
== END 2019-03-04 21:15 | disposition home or self-care (01) ==
LOC: JER 18:12
PROC: 3E0F7GC Introduction of Other Therapeutic Substance into Respiratory Tract, Via Natural or Artificial Opening (ICD-10-PCS; principal; 2019-03-04)
DX: J40 Bronchitis, not specified as acute or chronic (principal); J45.909 Unspecified asthma, uncomplicated; R73.03 Prediabetes; E28.2 Polycystic ovarian syndrome
CPT/HCPCS: 94640; 99282-25

== ENCOUNTER 2019-05-22 21:05 | Emergency (ER) | payer OTHER ==
[2019-05-22 21:19] VITALS: BP 115/69; PULSE 110; TEMP 98.9; BMI 29.5
--- NOTE | 2019-05-22 21:22 | PDOC ---
Rapid Medical Evaluation Chief Complaint: Sore Throat Time Seen by Provider: 05/22/19 21:16 Medical Evaluation: Allergies Allergy/AdvReac Type Severity Reaction Status Date / Time No Known Allergies Allergy Verified 05/22/19 21:19 Vital Signs Temp Pulse Resp BP Pulse Ox 98.9 F 110 H 18 115/69 98 05/22/19 21:16 05/22/19 21:16 05/22/19 21:16 05/22/19 21:16 05/22/19 21:16 05/22/19 21:21 I performed a brief in-person evaluation of this patient. 23-year-old female with history of asthma presenting with one day of throat pain /painful swallowing. Pertinent physical exam findings: Lungs CTAB. Tonsils 3+, no exudates. Tender cervical adenopathy on left side. HR 110. I have ordered the following: Rapid strep. Patient to proceed to: FT for further evaluation Discharge Disposition - Diagnosis Throat pain - Referrals - Patient Instructions - Post Discharge Activity
[2019-05-22] MEDS ORDERED: PENICILLIN G BENZATHINE 1,200,000 UNIT/2 ML PFS IM ONE ×2 (22:09→22:13)
[2019-05-22] MEDS ORDERED: DEXAMETHASONE LIQUID 0.5 MG/5 ML PO ONE (22:09)
--- NOTE | 2019-05-22 22:12 | PDOC ---
History of Present Illness - General Chief Complaint: Sore Throat Stated Complaint: SORE THROAT Time Seen by Provider: 05/22/19 21:16 - History of Present Illness Initial Comments: 05/22/19 22:10 23-year-old female presents for evaluation of sore throat x1 day Past History - Past Medical History Allergies/Adverse Reactions: Allergies Allergy/AdvReac Type Severity Reaction Status Date / Time No Known Allergies Allergy Verified 05/22/19 21:19 Home Medications: Ambulatory Orders Cephalexin [Keflex] 500 mg PO BID #14 capsule 12/08/18 Azithromycin [Zithromax 250mg Tablets -] 250 mg PO UTDICT #6 tab 03/04/19 Asthma: Yes COPD: No - Surgical History Abdominal Surgery: Yes (OVARIAN CYST REMOVED) - Reproductive History (#): 3 Para: 0 Polycystic Ovaries: Yes Therapeutic (s) & number: Yes (1) Spontaneous : 1 - Psycho Social/Smoking Cessation Hx Smoking History: Current every day smoker Have you smoked in the past 12 months: Yes Number of Cigarettes Smoked Daily: 20 Information on smoking cessation initiated: No Hx Alcohol Use: No Drug/Substance Use Hx: No Substance Use Type: None Review of Systems - Review of Systems HEENTM: Yes: Throat Pain, Difficulty Swallowing *Physical Exam - Vital Signs Last Vital Signs Temp Pulse Resp BP Pulse Ox 98.9 F 110 H 18 115/69 98 05/22/19 21:16 05/22/19 21:16 05/22/19 21:16 05/22/19 21:16 05/22/19 21:16 - Physical Exam 05/22/19 22:10 HEAD: NC/AT EYES: Conjuntiva clear Ears: Canals and TM's normal NOSE: No d/c THROAT: Moist mucous membrances, oral pharanx erythemic with exudate, uvula midline NECK: Supple without adenopathy CARDIAC: S1 S2 LUNGS: CTA Full and Equal breath sounds ABDOMEN: Soft NT ND MS: Full ROM in all joints without edema NEUROLOGIC: No gross sensory or motor deficits, NVID SKIN: Normal color and temperature no lesions or rashes Medical Decision Making - Medical Decision Making 05/22/19 22:10 Treatment options discussed patient elected Bicillin and Decadron 05/22/19 22:12 No chance of as per pt Discharge - Discharge Information Problems reviewed: Yes Clinical Impression/Diagnosis: Throat pain, Strep pharyngitis Condition: Stable Disposition: HOME - Admission No - Follow up/Referral Referrals: Cammy Schmitt MD [Staff Physician] - - Patient Discharge Instructions Additional Instructions: You were treated with a one-time injection of Bicillin. You do not require any more antibiotics. You were also given a long-acting steroid. Return to the emergency room for worsening symptoms and without fail follow-up with your primary care physician in 2 to 3 days for further evaluation and treatment options. - Post Discharge Activity
[2019-05-22] MEDS ORDERED: DEXAMETHASONE SOD PHOSPHATE 10 MG/1 ML VIAL ONE (22:13)
== END 2019-05-22 22:44 | disposition home or self-care (01) ==
LOC: JERFT 21:05
DX: J02.0 Streptococcal pharyngitis (principal); B95.0 Streptococcus, group A, as the cause of diseases classified elsewhere
CPT/HCPCS: 87880; 99281-25

== ENCOUNTER 2019-06-19 21:08 | Emergency (ER) | payer OTHER ==
--- NOTE | 2019-06-19 21:47 | PDOC ---
Rapid Medical Evaluation Time Seen by Provider: 06/19/19 21:45 Medical Evaluation: Allergies Allergy/AdvReac Type Severity Reaction Status Date / Time No Known Allergies Allergy Verified 05/22/19 21:19 06/19/19 21:45 I performed a brief in-person evaluation of this patient. Healthy 23-year-old female with 3 weeks of knee pain, thinks she "twisted" it. Pertinent physical exam findings: Unable to straighten completely. Able to flex to 90 degrees. Bearing partial weight. I have ordered the following: Knee x-ray Patient to proceed to FT for further evaluation. Discharge Disposition - Diagnosis Knee pain - Referrals - Patient Instructions - Post Discharge Activity
[2019-06-19 21:52] VITALS: BP 119/63; PULSE 85; TEMP 98.2; BMI 29.0
--- NOTE | 2019-06-19 22:42 | PDOC ---
History of Present Illness - General Chief Complaint: Pain Stated Complaint: RT KNEE PAIN Time Seen by Provider: 06/19/19 21:45 History Source: Patient Exam Limitations: No Limitations - History of Present Illness Initial Comments: 06/19/19 22:38 HPI: 23yo F with no significant PMH presenting with RLE knee and ankle pain. Reports 3+ weeks of ankle pain and longstanding knee pain with prior MRI evaluation and recommendation for cortisone shot. Patient denies changes in her pain, without improvement or worsening. Does not affect her ability to ambulate. Patient endorses pain, and swelling of medial aspect of the right knee , has not tried taking any pain medication at home. Would like referral to an orthopaedic surgeon. ROS without other complaint. All: NKDA Meds: Symbicort, Albuterol PMH: Asthma, PCOS PSH: Per chart SHx: Smokes 20 cigarettes / day Past History - Past Medical History Allergies/Adverse Reactions: Allergies Allergy/AdvReac Type Severity Reaction Status Date / Time No Known Allergies Allergy Verified 05/22/19 21:19 Home Medications: Ambulatory Orders Cephalexin [Keflex] 500 mg PO BID #14 capsule 12/08/18 Azithromycin [Zithromax 250mg Tablets -] 250 mg PO UTDICT #6 tab 03/04/19 Asthma: Yes COPD: No - Surgical History Abdominal Surgery: Yes (OVARIAN CYST REMOVED) - Reproductive History (#): 3 Para: 0 Polycystic Ovaries: Yes Therapeutic (s) & number: Yes (1) Spontaneous : 1 - Psycho Social/Smoking Cessation Hx Smoking History: Current every day smoker Have you smoked in the past 12 months: Yes Number of Cigarettes Smoked Daily: 20 Information on smoking cessation initiated: Yes Hx Alcohol Use: No Drug/Substance Use Hx: No Substance Use Type: None Review of Systems - Review of Systems Able to Perform ROS?: Yes Is the patient limited Maori proficient: Yes Constitutional: No: Chills, Fever, Weakness HEENTM: No: Nose Congestion, Throat Pain Respiratory: No: Cough, Shortness of Breath Cardiac (ROS): No: Chest Pain, Edema, Palpitations ABD/GI: No: Constipated, Diarrhea, Nausea, Vomiting : No: Burning, Dysuria, Frequency Musculoskeletal: Yes: See HPI, Joint Pain. No: Back Pain, Muscle Pain, Muscle Weakness Integumentary: No: Bruising, Pruritus, Rash Neurological: No: Headache, Numbness, Tingling, Weakness Psychiatric: No: Stressors, Change in Appetite Endocrine: No: Increased Thirst, Increased Urine Hematologic/Lymphatic: No: Anemia, Blood Clots, Easy Bleeding All Other Systems: Reviewed and Negative *Physical Exam - Vital Signs Last Vital Signs Temp Pulse Resp BP Pulse Ox 98.2 F 85 20 119/63 98 06/19/19 21:44 06/19/19 21:44 06/19/19 21:44 06/19/19 21:44 06/19/19 21:44 - Physical Exam 06/19/19 22:40 Vitals reviewed, AFVSS GEN: Well appearing, appears stated age, NAD, comfortable. AAOx3. HEENT: NCAT, EOMI, PERRL. Sclera anicteric, noninjected. No facial asymmetry. Moist mucous membranes. Normal voice. Trachea midline. CV: No central cyanosis or pallor. LUNG: Normal work of breathing. No cough. Speaking full sentences. GI: Deferred, unrelated to present complaint EXTREMITIES: 2+ distal pulses in RLE. No LE edema. No obvious deformities of all extremities. Full active ROM. SKIN: Warm, dry, no rashes appreciated. PSYCH: Normal mood and affect. Cooperative and appropriate. NEURO: CN grossly intact. Moving all extremities well. Normal strength and sensation in RLE. Medical Decision Making - Medical Decision Making 06/19/19 22:52 23yo F with no significant PMH presenting with subacute RLE knee and ankle pain. History notable to no interval changes since prior intervention, no lifestyle impact. Prior MRI without subsequent intervention. Doesn't use RICE method at home or take any OTC pain medications. DDX: most likely knee meniscus injury and ankle sprain. - Knee Xray without acute fracture - Petey Wrap Dispo: Home with Ortho followup Discharge - Discharge Information Problems reviewed: Yes Clinical Impression/Diagnosis: Knee pain Qualifiers: Chronicity: chronic Laterality: right Qualified Code(s): M25.561 - Pain in right knee; G89.29 - Other chronic pain Ankle pain, right Qualifiers: Chronicity: unspecified Qualified Code(s): M25.571 - Pain in right ankle and joints of right foot Condition: Good Disposition: HOME - Admission No - Follow up/Referral Referrals: Marvin Hernandez DO [Staff Physician] - - Patient Discharge Instructions Patient Printed Discharge Instructions: DI for Knee Pain Additional Instructions: Please follow up with the provided orthopaedic surgeon (Dr. Hernandez). Call his office first thing tomorrow morning to schedule an appointment for your right knee pain. In the meantime, take over the counter pain medication such as Tylenol or Ibuprofen for your aches and pains. Elevate your leg, ice it (20 minutes on, 20 minutes off), and rest it whenever possible. Return the ED for any new or concerning symptoms. - Post Discharge Activity
--- NOTE | 2019-06-19 23:01 | PDOC ---
Documentation entered by Annie Simmons SCRIBE, acting as scribe for Lexy Acosta MD. Lexy Acosta MD: This documentation has been prepared by the Troy joshi Brenda, SCRIBE, under my direction and personally reviewed by me in its entirety. I confirm that the documentation accurately reflects all work, treatment, procedures, and medical decision making performed by me. Attending Attestation - Resident Resident Name: Felice Bass - ED Attending Attestation I have performed the following: I have examined & evaluated the patient, The case was reviewed & discussed with the resident, I agree w/resident's findings & plan, Exceptions are as noted - HPI HPI: 06/19/19 22:54 23-year-old female presents because she states that she sprained her right ankle 3 weeks ago but it still hurts on the lateral malleolus and her heel. In discussing her ankle pain she mentioned that her knee has been swollen and in the past she was supposed to have a cortisone shot in this knee but didn't want an injection for hte pqin. she ialso had an MRI done of that knee but she says it still hurts - Physicial Exam PE: 06/19/19 22:56 Well-nourished well-developed 23-year-old female presents with 3 weeks right ankle pain and intermittent chronic right knee pain She is ambulating Right ankle has no appreciable swelling,some mild tenderness to lateral malleous , no metatarsel deformities,she can both plantar flex and dorsiflex her rt foot fully rt knee had mild medial menisus pain to deep palpation but no significant swelling. she can fully extend her leg and she is ambulatory with no limping good dp and pt pulses,sensation intact - Medical Decision Making 06/19/19 23:00 imp chronic rt knee pain, mild rt ankle discomfort right ankle xray : no fracture, no dislocation pt referred to ortho for further eval and care
== END 2019-06-20 00:02 | disposition home or self-care (01) ==
LOC: JER 21:08
DX: J45.909 Unspecified asthma, uncomplicated (principal); E28.2 Polycystic ovarian syndrome
CPT/HCPCS: 73562-TC-RT-FY; 99281-25

== ENCOUNTER 2019-07-19 12:35 | Emergency (ER) | payer OTHER ==
[2019-07-19 13:07] VITALS: BP 117/62; PULSE 96; TEMP 98.6; BMI 29.0
[2019-07-19] MEDS ORDERED: ALBUTEROL SO4 2.5/IPRATROPIUM 0.5 INH SOL 3 ML VIAL.NEB. NEB ONE ×3 (13:07→13:32)
--- NOTE | 2019-07-19 13:07 | PDOC ---
Rapid Medical Evaluation Time Seen by Provider: 07/19/19 13:05 Medical Evaluation: Allergies Allergy/AdvReac Type Severity Reaction Status Date / Time No Known Allergies Allergy Verified 05/22/19 21:19 07/19/19 13:05 I have performed a brief in-person evaluation of this patient. The patient presents with a chief complaint of: productive cough x 1 week, hx of asthma states she is not responding to inhaler Pertinent physical exam findings: well appearing, lungs CTAB I have ordered the following: duoneb The patient will proceed to the ED for further evaluation. Discharge Disposition - Diagnosis Cough - Referrals - Patient Instructions - Post Discharge Activity
[2019-07-19] MEDS ORDERED: IBUPROFEN 400 MG TABLET (FP) PO ONE ×2 (13:26→13:32)
[2019-07-19] MEDS ORDERED: predniSONE 20 MG TABLET (UD) PO ONE (13:27)
--- NOTE | 2019-07-19 13:31 | PDOC ---
History of Present Illness - General Chief Complaint: Asthma Stated Complaint: SORE THROAT/ASTHMA Time Seen by Provider: 07/19/19 13:05 History Source: Patient - History of Present Illness Timing/Duration: reports: other Associated Symptoms: reports: shortness of breath, wheezing. denies: cough, fever/chills Past History - Past Medical History Allergies/Adverse Reactions: Allergies Allergy/AdvReac Type Severity Reaction Status Date / Time No Known Allergies Allergy Verified 05/22/19 21:19 Home Medications: Ambulatory Orders Cephalexin [Keflex] 500 mg PO BID #14 capsule 12/08/18 Azithromycin [Zithromax 250mg Tablets -] 250 mg PO UTDICT #6 tab 03/04/19 predniSONE [Deltasone -] 40 mg PO DAILY #8 tablet 07/19/19 Asthma: Yes COPD: No - Surgical History Abdominal Surgery: Yes (OVARIAN CYST REMOVED) - Reproductive History (#): 3 Para: 0 Polycystic Ovaries: Yes Therapeutic (s) & number: Yes (1) Spontaneous : 1 - Psycho Social/Smoking Cessation Hx Smoking History: Current every day smoker Have you smoked in the past 12 months: Yes Number of Cigarettes Smoked Daily: 20 Information on smoking cessation initiated: Yes Hx Alcohol Use: No Drug/Substance Use Hx: No Substance Use Type: None Review of Systems - Review of Systems Constitutional: No: Chills, Fever HEENTM: Yes: Throat Pain. No: Ear Pain Respiratory: Yes: Shortness of Breath, Wheezing. No: Cough Cardiac (ROS): No: Chest Pain *Physical Exam - Vital Signs Last Vital Signs Temp Pulse Resp BP Pulse Ox 98.6 F 96 H 20 117/62 100 07/19/19 13:03 07/19/19 13:03 07/19/19 13:03 07/19/19 13:03 07/19/19 13:03 - Physical Exam General Appearance: Yes: Appropriately Dressed. No: Apparent Distress HEENT: positive: Normal ENT Inspection, Normal Voice, TMs Normal, Pharynx Normal. negative: Scleral Icterus (R), Scleral Icterus (L) Neck: positive: Supple. negative: Lymphadenopathy (R), Lymphadenopathy (L) Respiratory/Chest: positive: Lungs Clear, Normal Breath Sounds. negative: Respiratory Distress, Wheezing Cardiovascular: positive: Regular Rate, S1, S2 Integumentary: positive: Dry, Warm Neurologic: positive: Fully Oriented, Alert, Normal Mood/Affect Medical Decision Making - Medical Decision Making 07/19/19 13:59 24 yo F, h/o asthma, no admissions or intubations, here with sore throat and congestion x5 days and at some point developed shortness of breath and wheezing consistent with her asthma but not getting better with her pump. No fever or chills see exam Asthma flare in seyting or viral URI Exam unremarkable Improved w/ nebs here Dc w/ pred taper and supportive tx Discharge - Discharge Information Problems reviewed: Yes Clinical Impression/Diagnosis: Asthma flare Qualifiers: Asthma severity: mild Asthma persistence: unspecified Qualified Code(s): J45.901 - Unspecified asthma with (acute) exacerbation URI (upper respiratory infection) Qualifiers: URI type: unspecified viral URI Qualified Code(s): J06.9 - Acute upper respiratory infection, unspecified Condition: Improved Disposition: HOME - Additional Discharge Information Prescriptions: predniSONE [Deltasone -] 40 mg PO DAILY #8 tablet - Follow up/Referral - Patient Discharge Instructions Patient Printed Discharge Instructions: Asthma -- Adult - Post Discharge Activity
[2019-07-19] MEDS ORDERED: predniSONE 20 MG TABLET (UD) ONE (13:32)
== END 2019-07-19 14:01 | disposition home or self-care (01) ==
LOC: JERFT 12:35
PROC: 3E0F7GC Introduction of Other Therapeutic Substance into Respiratory Tract, Via Natural or Artificial Opening (ICD-10-PCS; principal; 2019-07-19)
DX: J45.901 Unspecified asthma with (acute) exacerbation (principal); J06.9 Acute upper respiratory infection, unspecified
CPT/HCPCS: 99283-25

== ENCOUNTER 2020-01-28 05:35 | Emergency (ER) | payer OTHER ==
[2020-01-28 05:52] VITALS: BP 127/73; PULSE 89; TEMP 97.7; BMI 30.6
--- NOTE | 2020-01-28 06:14 | PDOC ---
History of Present Illness - General Chief Complaint: ,Possible Stated Complaint: STD TEST Time Seen by Provider: 01/28/20 06:08 History Source: Patient Exam Limitations: No Limitations - History of Present Illness Initial Comments: 01/28/20 06:09 24 yo F h/o GC/Chlamydia treated in november p/w request for STD testing. States her boyfriend has lesions on his penis and he thinks she gave them to him so she is here to request STD testing. Denies all medical complaints including cough, CP, SOB, abdominal pain, urinary complaints, vaginal itching pain or discharge. Past History - Medical History Allergies/Adverse Reactions: Allergies Allergy/AdvReac Type Severity Reaction Status Date / Time No Known Allergies Allergy Verified 05/22/19 21:19 Home Medications: Ambulatory Orders Cephalexin [Keflex] 500 mg PO BID #14 capsule 12/08/18 Azithromycin [Zithromax 250mg Tablets -] 250 mg PO UTDICT #6 tab 03/04/19 predniSONE [Deltasone -] 40 mg PO DAILY #8 tablet 07/19/19 Asthma: Yes COPD: No - Surgical History Abdominal Surgery: Yes (OVARIAN CYST REMOVED) - Reproductive History Is Patient Now?: (UNKNOWN) (#): 3 Para: 0 Polycystic Ovaries: Yes Therapeutic (s) & number: Yes (1) Spontaneous : 1 - Psycho-Social/Smoking History Smoking History: Unknown if ever smoked Have you smoked in the past 12 months: Yes Number of Cigarettes Smoked Daily: 20 - Substance Abuse Hx (Audit-C & DAST Scrn) How often the patient has a drink containing alcohol: Never Score: In Men: 4 or > Positive; In Women: 3 or > Positive: 0 Screen Result (Pos requires Nsg. Audit-10AR): Negative In the last yr the pt used illegal drug/Rx for NonMed reason: No Score: Yes response is considered Positive: 0 Screen Result (Positive result requires Nsg. DAST-10): Negative Review of Systems - Review of Systems Able to Perform ROS?: Yes Comments:: 01/28/20 06:11 GENERAL/CONSTITUTIONAL: No fever or chills. No weakness. HEAD, EYES, EARS, NOSE AND THROAT: No change in vision. No ear pain or discharge. No sore throat. CARDIOVASCULAR: No chest pain or shortness of breath. RESPIRATORY: No cough, wheezing, or hemoptysis. GASTROINTESTINAL: No nausea, vomiting, diarrhea or constipation. GENITOURINARY: No dysuria, frequency, or change in urination. MUSCULOSKELETAL: No joint or muscle swelling or pain. No neck or back pain. SKIN: No rash. NEUROLOGIC: No headache, vertigo, loss of consciousness, or change in strength/sensation. ENDOCRINE: No increased thirst. No abnormal weight change. HEMATOLOGIC/LYMPHATIC: No anemia, easy bleeding, or history of blood clots. ALLERGIC/IMMUNOLOGIC: No hives or skin allergy. *Physical Exam - Vital Signs Last Vital Signs Temp Pulse Resp BP Pulse Ox 97.7 F 89 18 127/73 100 01/28/20 05:50 01/28/20 05:50 01/28/20 05:50 01/28/20 05:50 01/28/20 05:50 - Physical Exam 01/28/20 06:11 GENERAL: Well appearing, in no acute distress HEENT: NCAT, conjunctiva not injected, MMM, EOMI NECK: Normal ROM, supple LUNGS: CTAB. Good air entry. No wheezes, No Rhonchi and no crackles HEART: RRR, + s1 s2, no murmurs, rubs or gallops ABDOMEN: Soft, nontender, normoactive bowel sounds. No guarding, no rebound. No masses BACK: no midline or paraspinal tenderness. No CVA tenderness. EXTREMITIES: Warm and well perfused. No LE edema. FROM. No clubbing or cyanosi s. No cords, erythema, or tenderness NEUROLOGICAL: Aox3, Speech fluent, face symmetric, tongue/uvula midline. Sensation grossly intact to light touch. Ambulatory with steady gait. Strength intact. No focal deficits. SKIN: Warm, dry, normal turgor, no rashes or lesions noted. Medical Decision Making - Medical Decision Making 01/28/20 06:12 24 yo F here for asymptomatic STD testing, exam unremarkable. Plan: -GC/chlamydia, HIV and RPR sent -patient counseled on safe sex practices -d/c with instructions to refrain from intercourse until her tests have resulted, return precautions given, recommend PMD or IRONER OR PRESSER f/u This clinical encounter is taking place during a federal and state health care emergency attributable to the novel [place] Virus pandemic. The [employer] of the Department of Health and Human Services has declared, pursuant to the Public Health Service Act 319F-3 (42 U.S.C. 247d-6d), that a covered persons activities related to medical countermeasures against COVID-19 will be immune from liability under Federal and State law. Discharge - Discharge Information Problems reviewed: Yes Clinical Impression/Diagnosis: STD exposure Condition: Good Disposition: HOME - Admission No - Follow up/Referral Referrals: Virgilio Brannon [Primary Care Provider] - - Patient Discharge Instructions Patient Printed Discharge Instructions: Facts About Sexually Transmitted Infections, Chlamydia: The Silent STD, An STD Now Can Result in Infertility Later, How to Detect and Treat STDs Additional Instructions: You were tested for HIV, syphilis and Gonorrhea and Chlamydia. You will be called with your results. .You should refrain from any sexual activity until you have the results from your tests. You should follow up with your PMD or IRONER OR PRESSER. Return to the ED for new or worsening symptoms. - Post Discharge Activity
== END 2020-01-28 07:01 | disposition home or self-care (01) ==
LOC: JER 05:35
DX: Z20.2 Contact with and (suspected) exposure to infections with a predominantly sexual mode of transmission (principal)
CPT/HCPCS: 36415; 86780; 87389; 87491; 87591; 99283-25